=== PATIENT | male | born 1995 | race Caucasian/White ===

== ENCOUNTER 2018-12-09 15:03 | Inpatient (IN) | payer BC ==
[~2018-12-09] VITALS: Ht 182.9 cm; Wt 65.0 kg
[2018-12-09] MEDS ORDERED: SOD CHLORIDE 0.9% 1,000 ML IV ONE (16:30)
[2018-12-09] MEDS ORDERED: ONDANSETRON 4 MG INJ IV STA (16:48)
--- NOTE | 2018-12-09 16:50 | ERD ---
ER Documentation Chief Complaint Chief Complaint ran out of insulin c/o nausea and vomiting with weakness, hx dm type 1 HPI This is a 23-year-old male with insulin-dependent type 1 diabetes who is presenting with elevated blood sugars, waxing and waning mild to moderate cramping and general abdominal pain, nausea, few episodes of nonbilious nonbloody vomiting in addition to a few episodes of loose watery brown nonbloody diarrhea. The patient reports running out of his insulin over the last 1 to 2 days. He recently moved to [place], and he has had some trouble getting an appointment with a physician for a refill of his medication. The patient was finally able to schedule an outpatient follow-up appointment with a primary physician for December 21. The patient reports that over the last couple days, the patient's sugars have been slowly creeping up over 300. The patient has been in diabetic ketoacidosis in the past, and he is concerned that this could be occurring now. The patient denies fever or chills. The patient has had no headache or vision changes. The patient does not endorse neck or back pain. The patient denies lightheadedness or dizziness. The patient has had no chest pain or trouble breathing. The patient denies changes to bowel movements or urination. The patient has had no focal deficits. The patient has had no weakness or numbness or tingling to the face or extremities. ROS All systems reviewed and are negative except as per history of present illness. Medications Home Meds Reported Medications Insulin Aspart* (Novolog Insulin Pen*) 100 Unit/Ml Soln, 0 SC .SLIDING SCALE AC, EA 12/09/18 Insulin Glargine* (Lantus*) 100 Unit/Ml Soln, 27 UNIT SC QHS, #1 VIAL 12/09/18 Allergies Allergies: Coded Allergies: No Known Allergy (Unverified , 12/09/18) PMhx/Soc Medical and Surgical Hx: pt denies Surgical Hx History of Surgery: No Hx Neurological Disorder: No Hx Respiratory Disorders: No Hx Cardiac Disorders: Yes (Insulin-dependent diabetes) Hx Psychiatric Problems: No Hx Miscellaneous Medical Probl: No Hx Alcohol Use: Yes (Occasional) Hx Substance Use: No Hx Tobacco Use: No FmHx Family History: diabetes Physical Exam Vitals Vital Signs Date Temp Pulse Resp B/P (MAP) Pulse Ox O2 O2 Flow FiO2 Time Delivery Rate 7/26/19 98.2 118 20 139/79 98 15:14 (99) Physical Exam Const: No acute distress Head: Atraumatic Eyes: Normal Conjunctiva ENT: Normal External Ears, Nose. Dry mucous membranes. Neck: Full range of motion. No meningismus. Resp: Clear to auscultation bilaterally Cardio: Regular rhythm. Tachycardia. No murmurs Abd: Soft, non distended. General abdominal discomfort without exquisite tenderness. Normal bowel sounds Skin: No petechiae or rashes Back: No midline or flank tenderness Ext: No cyanosis, or edema Neur: Awake and alert Psych: Normal Mood and Affect Result Diagram: 12/09/18 1640 12/09/18 1640 Results 24 hrs Laboratory Tests Test 12/09/18 15:20 12/09/18 16:40 12/09/18 16:54 12/09/18 16:58 Bedside Glucose 387 mg/dL 355 mg/dL White Blood 11.6 10^3/ul Count Red Blood Count 5.28 10^6/ul Hemoglobin 17.3 g/dl Hematocrit 48.7 % Mean Corpuscular 92.2 fl Volume Mean Corpuscular 32.8 pg Hemoglobin Mean Corpuscular 35.5 g/dl Hemoglobin Adry nt Red Cell 11.3 % Distribution Width Platelet Count 271 10^3/UL Mean Platelet 10.0 fl Volume Immature 0.400 % Granulocytes % Neutrophils % 78.4 % Lymphocytes % 14.2 % Monocytes % 6.3 % Eosinophils % 0.2 % Basophils % 0.5 % Nucleated Red 0.0 /100WBC Blood Cells % Immature 0.050 10^3/ul Granulocytes # Neutrophils # 9.1 10^3/ul Lymphocytes # 1.7 10^3/ul Monocytes # 0.7 10^3/ul Eosinophils # 0.0 10^3/ul Basophils # 0.1 10^3/ul Nucleated Red 0.0 10^3/ul Blood Cells # Blood Gas Blood venous Specimen Source Arterial Blood 12/09/2018 4:45: Date Drawn 44 PM Arterial Blood OTHER Gas Puncture Site Brett Test N/A Venous Blood pH 7.237 Venous Blood 34.0 mmHG pCO2 (Temp Corrected) Venous Blood 14.1 mmol/L HCO3 Venous Blood 40.2 mmHG Oxygen Saturation Venous Blood -12.0 mmol/L Base Excess Venous Blood 18.6 g/dl Total Hemoglobin Venous Blood 39.9 % Oxyhemoglobin Venous Blood 0.1 % Methemoglobin Carboxyhemoglobi 0.7 % n Blood Gas 37.0 C Temperature Blood Gas ROOM AIR Modality FiO2 21.0 % Blood Gas HMACARENAS R.N. Critical Value Read Back Blood Gas MDA Notified Whom Blood Gas 12/09/2018 4:49: Notified Time 22 PM Sodium Level 137 mmol/L Potassium Level 5.2 mmol/L Chloride Level 95 mmol/L Carbon Dioxide 14 mmol/L Level Anion Gap 28 Blood Urea 16 mg/dl Nitrogen Creatinine 1.13 mg/dl Est Glomerular > 60 mL/min Filtrat Rate mL/min Glucose Level 375 mg/dl Calcium Level 10.5 mg/dl Phosphorus Level 5.0 mg/dl Magnesium Level 2.1 mg/dl Urine Color YELLOW Urine Clarity CLEAR Urine pH 5.0 Urine Specific 1.030 [place] Urine Ketones 2+ mg/dL Urine Nitrite NEGATIVE mg/dL Urine Bilirubin NEGATIVE mg/dL Urine NEGATIVE mg/dL Urobilinogen Urine Leukocyte NEGATIVE Bouchra/ul Esterase Urine 0 /HPF Microscopic RBC Urine 0 /HPF Microscopic WBC Urine Mucus FEW /HPF Urine Hemoglobin NEGATIVE mg/dL Urine Glucose 3+ mg/dL Urine Total 2+ mg/dl Protein Current Medications Medications Dose Sig/Rebeka Start Time Status Last (Trade) Ordered Route PRN Stop Time Admin Dose Reason Admin Sodium 1,000 ml @ Q1H ONCE 12/09/18 DC 12/09/18 Chloride 1,000 mls/hr IV 16:30 16:50 12/09/18 17:29 Ondansetron 4 mg ONCE STAT 12/09/18 DC 12/09/18 HCl (Zofran IV 16:48 17:14 Inj) 12/09/18 17:00 Ondansetron 4 mg STK-MED 12/09/18 DC HCl (Zofran ONCE .ROUTE 16:52 Inj) 12/09/18 16:53 Potassium 1,000 ml @ Q0M IV 12/09/18 Chloride/Sodi 0 mls/hr 17:59 um Chloride Potassium 1,000 ml @ Q0M IV 12/09/18 Chloride/Dext 0 mls/hr 17:59 mazin/ Sod Cl Potassium 1,000 ml @ Q0M IV 12/09/18 Chloride/Sodi 0 mls/hr 17:59 um Chloride Potassium 1,000 ml @ Q0M IV 12/09/18 Chloride/Dext 0 mls/hr 17:59 mazin/ Sod Cl Sodium 1,000 ml @ Q0M IV 12/09/18 Chloride 0 mls/hr 17:59 1,000 ml @ Q0M IV 12/09/18 Dextrose/Sodi 0 mls/hr 17:59 um Chloride Insulin 101 ml @ ER DKA 12/09/18 Human 6.57 mls/hr PROTOCOL IV 18:00 Regular 100 unit/ Sodium Chloride Lactated 650 ml @ ONCE ONCE 12/09/18 12/09/18 Ringer's 650 mls/hr IV 18:00 18:38 12/09/18 18:59 HYPOGLYCEM 12/09/18 Miscellaneous HYPOGLYCEMIA PROTOCOL PRN 18:00 TREATMENT XX Information .HYPOGLYCEMIA (* PROTOCOL Miscellaneous Pharmacy Order) Dextrose 50 ml Q15M PRN 12/09/18 (D50w IV 18:00 Syringe) .DECREASED GLUCOSE Dextrose 25 ml Q15M PRN 12/09/18 (D50w IV 18:00 Syringe) .DECREASED GLUCOSE Ondansetron 4 mg ER BRIDGE 12/09/18 HCl (Zofran PRN IV 18:30 Inj) NAUSEA/VOMITI 12/10/18 18:29 NG 650 mg ER BRIDGE 12/09/18 Acetaminophen PRN PO 18:30 (Tylenol .MILD PAIN 12/10/18 18:29 Tab) 1-3 OR TEMP Procedures/MDM MDM The patient's presentation warrants further investigation. Previous medical records, if available, were reviewed. LABS The patient's laboratory testing was obtained and reviewed. No emergent treatment was required unless described below. CBC: No E/o systemic infection or severe anemia or thrombocytopenia Chemistry: No E/o severe renal failure. Hyperglycemia with a significant anion gap metabolic acidosis, concerning for DKA. Hyperkalemia, not emergent, will improve with medications for DKA. Urine: No E/o acute infection or hematuria. Significant ketonuria, glucosuria and proteinuria. VBG: Metabolic acidosis TREATMENT/DISPOSITION The patient presents with cramping abdominal discomfort, nausea, vomiting and diarrhea with an elevated blood sugar and concerns of DKA. The patient's blood sugar was found to be elevated at 387. IV fluids were initiated immediately. The patient was screened for diabetic ketoacidosis. The results indicated the patient was in fact in DKA. The DKA protocol was initiated. I do suspect that the patient symptoms are related to medication noncompliance due to running out. I do not suspect an infectious etiology. The patient is afebrile and does not appear systemically ill. The patient is not septic and does not require a full septic work-up. ADMISSION At this time, I feel that the patient requires admission for further evaluation and management. The patient will be admitted to [Panel] in accordance with the patient's insurance. The patient was accepted by Dr. Bruno at 6:24 PM on December 09, 2018. CRITICAL CARE NOTE Time: 36 minutes excluding all billable procedures. Treatments/Evaluations: The patient was at risk of hemodynamic compromise. Timing of critical care involved close serial monitoring, evaluation of the patient's medical record including previous records & current laboratory/imaging studies, potential interventions for prevention of hemodynamic/ cardiopulmonary/ neurologic compromise, maintaining tight fluid balance, and any discussions with the family and/or consultants regarding the patient's status and prognosis. Disclaimer: Inadvertent spelling and grammatical errors are likely due to EHR/dictation software use and do not reflect on the overall quality of patient care. Note that the electronic time recorded on this note does not necessarily reflect the actual time of the patient encounter. Departure Diagnosis: Primary Impression: Diabetic ketoacidosis Diabetes mellitus type: type 1 Diabetes mellitus complication detail: without coma Qualified Codes: E10.10 - Type 1 diabetes mellitus with ketoacidosis without coma Additional Impressions: Hyperglycemia Nausea vomiting and diarrhea Abdominal cramping Noncompliance with medications Tachycardia High anion gap metabolic acidosis Condition: Critical DAVIN CUEVAS MD Dec 09, 2018 16:50
[2018-12-09] MEDS ORDERED: ONDANSETRON 4 MG INJ ONE (16:52)
[2018-12-09] MEDS ORDERED: LANT3I SC (17:55)
[2018-12-09] MEDS ORDERED: NOVO3I SC (17:56)
[2018-12-09] MEDS ORDERED: NS + KCL 30 MEQ 1,000 ML IV SCH (17:59)
[2018-12-09] MEDS ORDERED: D10/0.45% NACL + KCL 30 MEQ 1,000 ML IV SCH (17:59)
[2018-12-09] MEDS ORDERED: NS + KCL 40 MEQ 1,000 ML IV SCH (17:59)
[2018-12-09] MEDS ORDERED: DEXTROSE 10%/0.45% NACL 1,000 ML IV SCH (17:59)
[2018-12-09] MEDS ORDERED: D10/0.45% NACL + KCL 40 MEQ 1,000 ML IV SCH (17:59)
[2018-12-09] MEDS ORDERED: SOD CHLORIDE 0.9% 1,000 ML IV SCH (17:59)
[2018-12-09] MEDS ORDERED: LACTATED RINGER'S 650 ML IV ONE (18:00)
[2018-12-09] MEDS ORDERED: INSULIN REGULAR, HUMAN 100 UNIT in SOD CHLORIDE 0.9% 100 ML IV SCH ×2 (18:00)
[2018-12-09] MEDS ORDERED: DEXTROSE 50% 50 ML SYRINGE IV PRN ×2 (18:00)
[2018-12-09] MEDS ORDERED: ONDANSETRON 4 MG INJ IV PRN ×2 (18:30→19:00)
[2018-12-09] MEDS ORDERED: ACETAMINOPHEN 325 MG TAB PO PRN ×2 (18:30→19:00)
[2018-12-09] MEDS ORDERED: NACL 0.9% 3 ML SYG IV SCH (19:00)
--- NOTE | 2018-12-09 19:05 | HP ---
Date/Time of Note Date/Time of Note DATE: 12/09/18 TIME: 18:53 Assessment/Plan VTE Prophylaxis SCD applied (from Nsg): Yes Pharmacological prophylaxis: NA/contraindicated Pharm contraindication: low risk/ambulating Lines/Catheters IV Catheter Type (from Nrsg): Saline Lock Assessment/Plan Assessment/Plan 23 yo man with type I diabetes mellitus presents in DKA #Type I diabetes #DKA - Etiology: I suspect dehydration from gastroenteritis, combined with insufficient insulin. - Admit to ICU with DKA protocol - I have very low suspicion of bacterial infection. Will hold off on antibiotics. - NPO until gap closes - Afterwards, resume home glargine 27 and sliding scale aspart. - Will consider family life educator consult. #Gastroenteritis - Nausea, vomiting, diarrhea - The patient does not recall any culprit food. - Aggressive IV hydration per DKA protocol DVT: SCDs GI: None Result Diagram: 12/09/18 1640 12/09/18 1640 HPI/ROS Admit Date/Time Admit Date/Time 09 December 2018 Hx of Present Illness Mr. Henry is a 23 yo man with history of type I diabetes who presents with nausea, vomiting, and diarrhea. The patient was in his usual state of health until yesterday morning. He just moved here from [place] recently, he doesn't have a primary care doctor. He has an appointment with an racking technician on December 21. Yesterday morning he began developing nausea and over the course of the day he vomited about 5-6 times and had diarrhea also. Had some chills. He normally takes Lantus 27u qhs and novolog sliding scale. He just ran out of novolog, took his last dose yesterday morning. He still has some lantus left, took his usual dose last night. This morning he still felt nauseated and was very lightheaded when standing up. He has had DKA in the past, most recently last November, and felt this was about the same. So he presented to the emergency room. In the ED he was tachy to 118, BP 139/79, afebrile, tachypneic to 20. BMP was notable for DKA with glucose 375, bicarb 14, gap 28. ROS He denies fever, night sweats, anorexia, weight loss, vertigo, vision changes, sore throat, dysphagia, chest pain/pressure/palpitations, dyspnea, cough, dysuria, hematuria, urinary urgency, constipation, melena, hematochezia. PMH/Family/Social Past Medical History Type I diabetes Medications Current Medications Potassium Chloride/Sodium Chloride 1,000 ml @ 0 mls/hr Q0M IV ; Start 12/09/18 at 17:59 Potassium Chloride/Dextrose/ Sod Cl 1,000 ml @ 0 mls/hr Q0M IV ; Start 12/09/18 at 17:59 Potassium Chloride/Sodium Chloride 1,000 ml @ 0 mls/hr Q0M IV ; Start 12/09/18 at 17:59 Potassium Chloride/Dextrose/ Sod Cl 1,000 ml @ 0 mls/hr Q0M IV ; Start 12/09/18 at 17:59 Sodium Chloride 1,000 ml @ 0 mls/hr Q0M IV ; Start 12/09/18 at 17:59 Dextrose/Sodium Chloride 1,000 ml @ 0 mls/hr Q0M IV ; Start 12/09/18 at 17:59 Insulin Human Regular 100 unit/ Sodium Chloride 101 ml @ 6.57 mls/hr ER DKA PROTOCOL IV ; Start 12/09/18 at 18:00 Lactated Ringer's 650 ml @ 650 mls/hr ONCE ONCE IV Last administered on 12/09/18at 18:38; Admin Dose 650 MLS/HR; Start 12/09/18 at 18:00; Stop 12/09/18 at 18:59 Miscellaneous Information (* Miscellaneous Pharmacy Order) HYPOGLYCEMIA TREATMENT HYPOGLYCEM PROTOCOL PRN XX .HYPOGLYCEMIA PROTOCOL; Start 12/09/18 at 18:00 Dextrose (D50w Syringe) 50 ml Q15M PRN IV .DECREASED GLUCOSE; Start 12/09/18 at 18:00 Dextrose (D50w Syringe) 25 ml Q15M PRN IV .DECREASED GLUCOSE; Start 12/09/18 at 18:00 Ondansetron HCl (Zofran Inj) 4 mg ER BRIDGE PRN IV NAUSEA/VOMITING; Start 12/09/18 at 18:30; Stop 12/10/18 at 18:29 Acetaminophen (Tylenol Tab) 650 mg ER BRIDGE PRN PO .MILD PAIN 1-3 OR TEMP; Start 12/09/18 at 18:30; Stop 12/10/18 at 18:29 Coded Allergies: No Known Allergy (Unverified , 12/09/18) Past Surgical History Past Surgical Hx: no surgical history Social History Recently moved to [place] from [place]. Works at [employer] Alcohol Use: rarely Smoking Status: Never smoker Drug Use: marijuana (occasionally) Exam/Review of Systems Vital Signs Vitals Vital Signs Date Temp Pulse Resp B/P (MAP) Pulse Ox O2 O2 Flow FiO2 Time Delivery Rate 12/09/18 98.2 118 20 139/79 98 15:14 (99) Exam Exam Gen: Very fatigued appearing young man lying in gurney. Eyes: PERRL, no icterus HEENT: Very dry mucous membranes, clear oropharynx Neck: Supple, no lymphadenopathy Card: Tachy, regular rhythm, no murmurs Pulm: Clear to auscultation bilaterally. Abd: Soft, nontender, nondistended. Normoactive bowel sounds. No hepatosplenomegaly. Ext: No cyanosis/clubbing/edema Skin: warm, dry, well perfused. URI CANELA MD Dec 09, 2018 19:04
[2018-12-10] MEDS ORDERED: MAGNESIUM SULFATE 2 GM/50 ML 50 ML IVPB ONE (02:30)
[2018-12-10] MEDS ORDERED: INSULIN GLARGINE [LANTus] (100 UNITS/ML) SYG SC ONE ×2 (03:30→13:30)
[2018-12-10] MEDS ORDERED: DEXTROSE 50% 50 ML SYRINGE IV PRN ×2 (08:00)
[2018-12-10] MEDS ORDERED: GLUCOSE GEL 15 GRAM TUBE PO PRN ×2 (08:00)
[2018-12-10] MEDS ORDERED: GLUCAGON 1 MG INJ IM PRN (08:00)
[2018-12-10] MEDS ORDERED: GLUCOSE GEL 15 GRAM TUBE BUCCAL PRN (08:00)
[2018-12-10 09:34] VITALS: Ht 182.9 cm; Wt 65.0 kg
[2018-12-10] MEDS: INSULIN ASPART [NOVOLOG] 3 ML PEN SC SCH ×3 (09:54→17:09)
--- NOTE | 2018-12-10 10:14 | PDOCDIS ---
Discharge Instructions CONDITION [id number] Patient Condition: [id number] Good HOME CARE INSTRUCTIONS: [id number] Special Diet: [id number] DIABETIC ACTIVITY: [id number] Activity Restrictions: [id number] No Restrictions FOLLOW UP/APPOINTMENTS Follow-up Plan FOLLOWUP WITH YOUR PCP IN 1-2 WEEKS REBEKAH GALLEGO Dec 10, 2018 10:14
[2018-12-10] MEDS ORDERED: LANT3I SC ×2 (10:17→20:42)
[2018-12-10] MEDS ORDERED: NOVO3I SC ×2 (10:17→20:42)
[2018-12-10 11:04] VITALS: BP 118/75; PULSE 91; RESP 22
--- NOTE | 2018-12-10 12:48 | DS ---
Date/Time of Note Date/Time of Note DATE: 12/10/18 TIME: 12:45 Discharge Summary Admission/Discharge Info Admit Date/Time December 09, 2018 Discharge Date/Time December 10, 2018 Discharge Diagnosis 23 yo man with type I diabetes mellitus presents in DKA #Type I diabetes with DKA Nausea and vomiting likely secondary to DKA, status post IV fluids, now resolved Status post insulin drip with resolution Patient ran out of home insulin, patient prescribed refill prescription Patient Condition: Good Hospital Course Patient is a 23-year-old male with history of type 1 diabetes, patient presents with nausea and vomiting likely secondary to underlying DKA. Patient has no evidence of acute infection, patient states that he ran out of his home insulin requires a new prescription, patient received insulin drip and IV fluids with resolution of DKA patient is stable for DC to home, new prescriptions for insulin have been provided, on the day of discharge patient vitals, labs and physical exam are stable. Home Meds Active Scripts Insulin Aspart* (Novolog Insulin Pen*) 100 Unit/Ml Soln, 0 SC .SLIDING SCALE AC, #1 VIAL 2 Refills Prov:REBEKAH GALLEGO 12/10/18 Insulin Glargine* (Lantus*) 100 Unit/Ml Soln, 27 UNIT SC QHS, #1 VIAL 2 Refills Prov:REBEKAH GALLEGO 12/10/18 Follow-up Plan FOLLOWUP WITH YOUR PCP IN 1-2 WEEKS Primary Care Provider Not On Staff Doctor Time spent on discharge: > 30 minutes REBEKAH GALLEGO Dec 10, 2018 12:48
[2018-12-10 16:35] VITALS: BP 121/69; PULSE 79
[2018-12-10 20:00] VITALS: BP 118/71; PULSE 83; RESP 20
[2018-12-11] MEDS ORDERED: ACCU-CHEK XX SCH (02:00)
== END 2018-12-10 20:56 | disposition home or self-care (01) | DRG 639 ==
LOC: E/R 15:03 → TEL 12-10 04:22 → EDBEDREQSVC 12-10 04:23 → EDBEDREQTM 12-10 04:23
PROVIDERS: ADMIT Family Medicine; ATTEND Internal Medicine
DX: E10.10 Type 1 diabetes mellitus with ketoacidosis without coma (principal); K52.9 Noninfective gastroenteritis and colitis, unspecified; R86.0 Abnormal level of enzymes in specimens from male genital organs; R11.2 Nausea with vomiting, unspecified; Z91.14 Patient's other noncompliance with medication regimen; Z79.4 Long term (current) use of insulin
CPT/HCPCS: 36415; 80048; 81001; 82803; 82962; 83036; 83735; 84100; 85025; 96374; J1815; J2405; J3475; J3480; J7030; J7120